=== PATIENT | female | born 1970 | race Caucasian/White ===

== ENCOUNTER → 2023-12-07 07:47 | Outpatient (REF) | payer BC, SELFPAY | LOC: WDC 07:47 | PROVIDERS: ATTENDING PHYSICIAN Surgery; FAMILY PHYSICIAN Family Medicine | DX: N64.52 Nipple discharge (principal) | CPT/HCPCS: 76642 ==

== ENCOUNTER → 2023-12-14 16:39 | Outpatient (REF) | payer BC, SELFPAY | LOC: MRI 3T 16:39 | PROVIDERS: ATTENDING PHYSICIAN Surgery; FAMILY PHYSICIAN Family Medicine | DX: N64.52 Nipple discharge (principal) | CPT/HCPCS: 77049; A9585 ==

== ENCOUNTER → 2024-06-20 16:16 | Outpatient (REF) | payer BC, SELFPAY | LOC: MRI 3T 16:16 | PROVIDERS: ATTENDING PHYSICIAN Surgery; FAMILY PHYSICIAN Family Medicine | DX: R92.8 Other abnormal and inconclusive findings on diagnostic imaging of breast (principal); N64.52 Nipple discharge | CPT/HCPCS: 77049; A9585 ==

== ENCOUNTER → 2024-10-10 12:40 | Outpatient (REF) | payer BC, SELFPAY | LOC: WDC 12:40 | PROVIDERS: ATTENDING PHYSICIAN Obstetrics & Gynecology | DX: Z12.31 Encounter for screening mammogram for malignant neoplasm of breast (principal) | CPT/HCPCS: 77063; 77067 ==

== ENCOUNTER → 2024-10-16 08:06 | Outpatient (REF) | payer BC, SELFPAY | LOC: WDC 08:06 | PROVIDERS: ATTENDING PHYSICIAN Obstetrics & Gynecology | DX: R92.8 Other abnormal and inconclusive findings on diagnostic imaging of breast (principal) | CPT/HCPCS: 76642 ==

== ENCOUNTER → 2024-12-19 09:57 | Outpatient (REF) | payer BC, SELFPAY | LOC: WDC 09:57 | PROVIDERS: ATTENDING PHYSICIAN Obstetrics & Gynecology | DX: R92.333 Mammographic heterogeneous density, bilateral breasts (principal) | CPT/HCPCS: 76641 ==